=== PATIENT | male | born 1955 | race Caucasian/White ===

== ENCOUNTER 2018-02-12 16:56 | Emergency (ER) | payer OTHER ==
[~2018-02-12] VITALS: Ht 180.3 cm; Wt 111.1 kg
[~2018-02-12 16:56] MED LIST: DOXYCYCLINE 10100 M1 PO; GABAPENTIN 100100 MG PO; LASIX 20 MG TAB20 MG PO; LIPITOR10 MG PO; LISINOPRIL10 MG PO; LOPRESSOR25 PO; METFORMIN HCL500 MG PO; PROAIR HFA8.5 GM INH; TRAMADOL 50 MG50 MG PO; TRAZODONE 150150 M1 PO; VENTOLIN HFA 1818 GM INH; ZANAFLEX4 MG PO; ZPAK PO
[2018-02-12] MEDS ORDERED: LISINOPRIL10 MG PO (17:16)
[2018-02-12] MEDS ORDERED: LASIX 40 MG TAB40 M2 PO (17:16)
[2018-02-12] MEDS ORDERED: ASPIR 8181 MG PO (17:17)
[2018-02-12 18:03] LABS: ABSOLUTE BASOPHILS 0.1 thou/uL (0.0-0.2); ABSOLUTE EOSINOPHILS 0.1 thou/uL (0.0-0.7); ABSOLUTE LYMPHOCYTES 2.2 thou/uL (0.8-5.3); ABSOLUTE MONOCYTES 0.8 thou/uL (0.0-1.2); ABSOLUTE NEUTROPHILS 4.2 thou/uL (1.6-8.1); BASOPHILS 0.8 %; EOSINOPHILS 1.5 %; HEMATOCRIT 40.6 % (42.0-52.0); HEMOGLOBIN 13.4 gm/dL (14.0-18.0); LYMPHOCYTES 29.6 %; MCHC 33.1 g/dL (28.0-37.0); MCV 87.6 fL (80.0-100.0); MONOCYTES 10.9 %; MPV 7.9 fl. (7.2-11.1); NUCLEATED RBCS 0 /100WBC; PLATELET COUNT* 310 thou/uL (150-400); POLYS 57.2 %; RBC 4.64 mil/uL (4.50-6.00); RDW-CV 14.7 % (10.5-14.5); WBC 7.4 thou/uL (4.0-11.0)
[2018-02-12 18:09] LABS: ANION GAP 8 mmol/L (7-16); BUN 23 mg/dL (7-18); CALCIUM 9.1 mg/dL (8.5-10.1); CHLORIDE 99 mmol/L (98-107); CO2 31 mmol/L (21-32); CREATININE 1.2 mg/dL (0.6-1.3); GLUCOSE 134 mg/dL (70-99); SODIUM 138 mmol/L (136-145)
[2018-02-12 18:22] LABS: ALBUMIN 3.9 g/dL (3.4-5.0); ALKALINE PHOSPHATASE 87 U/L (46-116); NT-PRO BRAIN NAT PEPTIDE 90 pg/mL (<300); SGOT 17 U/L (15-37); SGPT 40 U/L (30-65); TOTAL BILIRUBIN 0.2 mg/dL (<0.1-1.0); TOTAL PROTEIN 8.3 g/dL (6.4-8.2); TROPONIN-I LEVEL <0.06 ng/mL (<0.06)
[2018-02-12] MEDS ORDERED: LEVAQUIN 500 M500 M2 PO (18:26)
[2018-02-12] MEDS ORDERED: VENTOLIN HFA 1818 GM INH (18:26)
[2018-02-12 19:03] LABS: INFLUENZA A ANTIGEN None Detected (None Detect); INFLUENZA B ANTIGEN None Detected (None Detect)
[2018-02-12] MEDS ORDERED: ZPAK PO (19:12)
[2018-02-12 19:20] VITALS: BP 134/71
--- NOTE | 2018-02-13 14:01 | EKG ---
[place] [address] ELECTROCARDIOGRAM REPORT Name: SHAHNAZ CANALES Room: [facility]#: [id number] Admission: 02/12/18 Attend Phys: Discharge: 02/12/18 Date of : 53 Report #: [id number] THIS REPORT FOR: //name// [facility] ED Test Date: 2018-02-12 Test Time: 17:45:42 Pat Name: SHAHNAZ CANALES Department: Room: Gender: Customer Service Engineer: Landy GARCIA : 1955 Requested By: Katelyn Pate Order Number: [id number] MD: Taurus Gama Measurements Intervals [place] Rate: 72 P: -6 CT: 193 QRS: 41 QRSD: 169 T: 197 QT: 445 QTc: 488 Interpretive Statements Sinus rhythm left bundle-branch block Baseline wander in lead(s) V1 No previous ECG available for comparison Electronically Signed On 02-13-2018 14:01:30 MEDICAL REVIEWER by Taurus Gama [email or web address] <ELECTRONICALLY SIGNED> By: Taurus Gama MD, [facility] 02/13/18 1401 D: 12/1744 174 Taurus Gama MD, FACC /EPI
== END 2018-02-12 19:21 | disposition home or self-care (01) ==
LOC: M.ERS 16:56
PROVIDERS: Nurse Practitioner Family
DX: J18.9 Pneumonia, unspecified organism (principal)

== ENCOUNTER 2018-03-06 13:33 | Emergency (ER) | payer OTHER ==
[~2018-03-06] VITALS: Ht 180.3 cm; Wt 108.9 kg
[~2018-03-06 13:33] MED LIST changes: +ASPIR 8181 MG PO; +LASIX 40 MG TAB40 M2 PO; +LEVAQUIN 500 M500 M2 PO
[2018-03-06 15:51] LABS: INFLUENZA A ANTIGEN None Detected (None Detect); INFLUENZA B ANTIGEN None Detected (None Detect)
[2018-03-06] MEDS ORDERED: BENZONATATE200 MG PO (15:57)
[2018-03-06 16:03] VITALS: BP 106/75
== END 2018-03-06 16:04 | disposition home or self-care (01) ==
LOC: M.ERS 13:33
PROVIDERS: Nurse Practitioner Family
DX: J06.9 Acute upper respiratory infection, unspecified (principal); E11.9 Type 2 diabetes mellitus without complications; I11.0 Hypertensive heart disease with heart failure; I50.9 Heart failure, unspecified; Z95.5 Presence of coronary angioplasty implant and graft

== ENCOUNTER 2019-12-23 20:51 | Observation (INO) | payer OTHER ==
[~2019-12-23] VITALS: Ht 180.3 cm; Wt 108.9 kg
[~2019-12-23 20:51] MED LIST changes: +BENZONATATE200 MG PO; -LOPRESSOR25 PO; +METOPROLOL TART25 MG PO
[2019-12-23 20:55] VITALS: BP 126/62
[2019-12-23 21:22] LABS: ABSOLUTE BASOPHILS 0.1 thou/uL (0.0-0.2); ABSOLUTE EOSINOPHILS 0.3 thou/uL (0.0-0.7); ABSOLUTE MONOCYTES 0.6 thou/uL (0.0-1.2); ABSOLUTE NEUTROPHILS 9.4 thou/uL (1.6-8.1); BASOPHILS 0.5 %; EOSINOPHILS 1.8 %; HEMATOCRIT 39.3 % (42.0-52.0); HEMOGLOBIN 12.8 gm/dL (14.0-18.0); LYMPHOCYTES 27.8 %; MCH 27.9 pg (26.0-34.0); MCHC 32.6 g/dL (28.0-37.0); MCV 85.6 fL (80.0-100.0); MONOCYTES 4.3 %; MPV 7.1 fl. (7.2-11.1); NUCLEATED RBCS 0 /100WBC; PLATELET COUNT* 327 thou/uL (150-400); POLYS 65.6 %; RDW-CV 15.3 % (10.5-14.5); WBC 14.3 thou/uL (4.0-11.0)
[2019-12-23 21:31] LABS: CREATININE 1.7 mg/dL (0.6-1.3); POTASSIUM 3.6 mmol/L (3.5-5.1)
[2019-12-23 21:35] LABS: ALBUMIN 3.8 g/dL (3.4-5.0); TOTAL BILIRUBIN 0.3 mg/dL (<0.1-1.0); TOTAL PROTEIN 8.4 g/dL (6.4-8.2)
[2019-12-23 22:50] LABS: URINE BILIRUBIN NEGATIVE (Negative); URINE BLOOD NEGATIVE (Negative); URINE CLARITY CLEAR; URINE COLOR YELLOW; URINE GLUCOSE-RANDOM NEGATIVE (Negative); URINE KETONES NEGATIVE (Negative); URINE LEUKOCYTES-REFLEX NEGATIVE (Negative); URINE NITRITE-REFLEX NEGATIVE (Negative); URINE PROTEIN NEGATIVE (Negative); URINE UROBILINOGEN 0.2 E.U./dl (0.2-1.0)
[2019-12-24] VITALS (7 sets, daily range): BP systolic 144–164; BP diastolic 74–81
[2019-12-24 08:56] LABS: CALCIUM 8.7 mg/dL (8.5-10.1); POTASSIUM 3.7 mmol/L (3.5-5.1)
[2019-12-24 08:59] LABS: MAGNESIUM 1.9 mg/dL (1.8-2.4); PHOSPHORUS* 3.3 mg/dL (2.5-4.9)
--- NOTE | 2019-12-24 11:05 | EKG ---
[place] [address] ELECTROCARDIOGRAM REPORT Name: SHAHNAZ CANALES Room: [address]R.#: [id number] Admission: 12/23/19 Attend Phys: Anna Gan, Discharge: Date of : 53 Date of Service: 12/23/192103 Report #: [id number] THIS REPORT FOR: //name// [facility] ED Test Date: 2019-12-23 Test Time: 21:04:48 Pat Name: SHAHNAZ CANALES Department: Room: [facility] Gender: M Cissp: JERMAIN : 1955 Requested By: Trevor Aguilar Order Number: [id number] MD: Mack Vela Measurements Intervals [place] Rate: 74 P: 21 HI: 201 QRS: 38 QRSD: 178 T: 199 QT: 436 QTc: 484 Interpretive Statements Sinus rhythm LBBB Compared to ECG 02/12/2018 17:45:42 No significant changes Electronically Signed On 12-24-2019 11:05:05 YOUTH SERVICES LIBRARIAN by Mack Vela [email or web address] <ELECTRONICALLY SIGNED> By: Mack Vela MD, [facility] 12/24/19 1105 03 03 Mack Vela MD, [facility] /EPI
--- NOTE | 2019-12-24 14:23 | 2DMMODE ---
[place] [address] 2 D/M-MODE ECHOCARDIOGRAM Name: SHAHNAZ CANALES Room: [address] Marcy#: [id number] Admission: 12/23/19 Attend Phys: Anna Gan, Discharge: Date of : 53 Date of Service: 12/24/19 1422 Report #: [id number] THIS REPORT FOR: cc: Ratnesh. MD Brandt Carlton Ratnesh. MD Blick, David R. MD [facility] ~ APPROVED REPORT Study performed: 12/24/2019 12:00:14 EXAM: Comprehensive 2D, Doppler, and color-flow Echocardiogram Patient Location: Bedside BSA: 2.28 HR: 93 bpm BP: 154/74 mmHg Other Information Study Quality: Adequate Indications CAD 2D Dimensions IVSd: 14.96 (7-11mm) LVOT Diam: 19.73 (18-24mm) LVDd: 55.01 mm PWd: 12.64 (7-11mm) Ascending Ao: 34.10 (22-36mm) LVDs: 50.81 (25-40mm) Aortic Root: 36.24 mm Volumes Left Atrial Volume (Systole) LA ESV Index: 41.90 mL/m2 Aortic Valve AoV Peak Alexander.: 2.10 m/s AO Peak Gr.: 17.57 mmHg LVOT Max P.17 mmHg AO Mean Gr.: 8.77 mmHg LVOT Mean P.30 mmHg LVOT Max V: 0.89 m/s AO V2 VTI: 32.14 cm LVOT Mean V: 0.74 m/s OLIVIA (VTI): 1.64 cm2 LVOT V1 VTI: 17.26 cm Mitral Valve E/A Ratio: 1.50 [place] [address] 2 D/M-MODE ECHOCARDIOGRAM Name: SHAHNAZ CANALES Room: [address] Marcy#: [id number] Admission: 12/23/19 Attend Phys: Anna Gan, Discharge: Date of : 53 Date of Service: 12/24/19 [facility]2 Report #: [id number] MV Decel. Time: 142.96 ms MV E Max Alexander.: 0.82 m/s MV PHT: 41.46 ms MVA (PHT): 5.31 cm2 TDI E/Lateral E': 5.47 E/Medial E': 3.73 Medial E' Alexander.: 0.22 m/s Lateral E' Alexander.: 0.15 m/s Pulmonary Valve PV Peak Alexander.: 1.69 m/s PV Peak Gr.: 11.38 mmHg Tricuspid Valve RAP Estimate: 5.00 mmHg TR Peak Gr.: 17.68 mmHg RVSP: 22.68 mmHg PA Pressure: 22.68 mmHg Left Ventricle Left ventricle is borderline dilated. akinesis noted of the apex and base of inferior wall Mild concentric left ventricular hypertrophy. Left ventricular systolic function is moderately decreased. LVEF is 35-40%. Right Ventricle The right ventricle is normal size. The right ventricular systolic function is normal. Atria Left atrium is mildly dilated. The atrial septum is aneurysmal. Right atrium is mildly dilated. Aortic Valve Aortic valve is calcified. trace aortic regurgitation is present. Mild aortic stenosis. Mitral Valve The mitral valve is normal in structure. There is trace mitral valve regurgitation noted. No evidence of mitral valve stenosis. Tricuspid Valve The tricuspid valve is normal in structure. Trace tricuspid regurgitation. Pulmonic Valve The pulmonary valve is normal in structure. [place] [address] 2 D/M-MODE ECHOCARDIOGRAM Name: SHAHNAZ CANALES Room: [address]#: [id number] Admission: 12/23/19 Attend Phys: Anna Gan, Discharge: Date of : 53 Date of Service: 12/24/19 1422 Report #: [id number] valvular regurgitation. Great Vessels The aortic root is normal in size. Aortic arch is not well visualized. IVC is not well visualized. Pericardium There is no pericardial effusion. <Conclusion> Mild concentric left ventricular hypertrophy. LVEF is 35-40%. Left atrium is mildly dilated. Mild aortic stenosis. <ELECTRONICALLY SIGNED> By: Mack Vela MD, FACC 12/24/19 142 21 21 Mack Vela MD, FACC /INF
--- NOTE | 2019-12-24 17:28 | CON ---
[address] [address] CONSULTATION Name: SHAHNAZ CANALES Room: [address] Ailyn Vidal#: [id number] Admission: 12/23/19 Attend Phys: Anna Gan MD Discharge: 12/24/19 Date of : 53 Report #: [id number] THIS REPORT FOR: //name// cc: Mary Carlton. Ratnesh. SREE Goldstein ~ DATE OF SERVICE: 12/24/2019 CARDIOLOGY CONSULTATION HISTORY OF PRESENT ILLNESS: The patient is a 64-year-old white male who I was asked to see in the Emergency Room today after he complained of feeling dizzy. The history is obtained from the patient. There are no family members available. The patient has minimal old records here at [facility]. According to the patient, approximately 5 years ago, he was driving his car when he suddenly felt diaphoretic, he felt a tightness in his chest, felt somewhat short of breath. He went to [place] in [place]. He was told that he was having a heart attack. He was transferred down to [facility] by ambulance. Two days later, he underwent a cardiac catheterization from the femoral artery. He apparently had 2 coronary stents placed. He notes about 4 days later, he had additional 2 coronary stents placed through the right radial artery. He has done well since that time. Denies recurrent tightness in his chest. He was doing well until yesterday, he was at home when he suddenly felt lightheaded. He was going to the bathroom. He sat down on the toilet. He again felt lightheaded as if he is going to pass out. He did feel somewhat short of breath. He was shaking. He had a headache. Paramedics were called. His blood pressure was noted to be low. He was brought here to [facility] and admitted for further evaluation and treatment. He denies any chest tightness, fever, cough, vomiting, bleeding or diarrhea. Denies any palpitations. PAST MEDICAL HISTORY: Otherwise, he has had no surgical procedures. He does have chronic back pain. He has a history of hypertension, diabetes, hyperlipidemia. MEDICATIONS: Include lisinopril, Lipitor, metformin, aspirin. FAMILY HISTORY: His father of heart attack. SOCIAL HISTORY: He is . He and his live in [place], [place]. He is a musician. He works out on a regular basis. Quit smoking and drinking alcohol years ago. 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 No longer abuses drugs. REVIEW OF SYSTEMS: He is overweight, being 5 feet 11 inches, 240 pounds. He has a history of sleep apnea and actually had ENT surgery years ago for correction. No history of stroke. He has a history of asthma, used inhaler in the past. No history of liver disease, kidney disease, cancer, [place] [address] CONSULTATION Name: SHAHNAZ CANALES Room: [address] Ailyn Vidal#: [id number] Admission: 12/23/19 Attend Phys: Anna Gan MD Discharge: 12/24/19 Date of : 53 Report #: [id number] illness or chronic skin condition. PHYSICAL EXAMINATION: GENERAL: Revealed a large middle-aged male, appeared in no distress. VITAL SIGNS: He had a blood pressure of 130/60, pulse 70, he was afebrile. HEENT: He was anicteric. Conjunctivae pink. Mucous membranes moist. NECK: Veins do not appear distended. No carotid bruits. Neck supple. CHEST: No expiratory wheezes. CARDIAC: Regular rate and rhythm without murmur. ABDOMEN: Obese. EXTREMITIES: Had trace edema. SKIN: Cool and dry. NEUROLOGIC: Nonfocal. His ECG showed a sinus rhythm with a left bundle-branch block. LABORATORY DATA: ____ 3.7, creatinine 1.0. Liver function studies were normal. Troponins were all 0.06. His TSH 1.5. White blood cell count 14.3, hemoglobin 12.8. IMPRESSION AND RECOMMENDATIONS: 1. Dizziness. No evidence of any arrhythmia. Possible dehydration. 2. Previous coronary artery stent. No evidence of acute myocardial infarction. I would continue aspirin a day. Recommend echocardiogram. 3. Hyperlipidemia. The patient is on a statin drug. 4. Hypertension. The patient is on a beta sunshine and GERMAIN inhibitor. 5. Diabetes. 6. Obesity. 7. History of sleep apnea. 8. Chronic back pain. 9. History of illicit drug use. <ELECTRONICALLY SIGNED> By: Mack Vela MD, FACC 12/24/19 1728 1035 [id number] Vela MD, FACC /nt
== END 2019-12-24 16:36 | disposition home or self-care (01) ==
LOC: M.ERS 20:51 → M.TBA-ER 23:49
PROVIDERS: Emergency Medicine Emergency Medical Services; Internal Medicine; ADMIT Internal Medicine; ATTEND Internal Medicine
DX: R55 Syncope and collapse (principal); E11.9 Type 2 diabetes mellitus without complications; I11.0 Hypertensive heart disease with heart failure; I50.9 Heart failure, unspecified; K59.00 Constipation, unspecified; I25.10 Atherosclerotic heart disease of native coronary artery without angina pectoris; E66.9 Obesity, unspecified; E86.9 Volume depletion, unspecified; N17.9 Acute kidney failure, unspecified; Z86.73 Personal history of transient ischemic attack (TIA), and cerebral infarction without residual deficits; Z98.890 Other specified postprocedural states